=== PATIENT | male | born 1990 | race Caucasian/White ===

== ENCOUNTER 2020-01-28 20:30 | Outpatient (CLI) | payer BC | END 2020-01-28 20:31 | disposition home or self-care (01) | LOC: SLEEPLAB 20:30 | PROVIDERS: ATTEND Family Medicine | DX: G47.33 Obstructive sleep apnea (adult) (pediatric) (principal); R51 Headache; R53.83 Other fatigue; G47.00 Insomnia, unspecified; G47.12 Idiopathic hypersomnia without long sleep time | CPT/HCPCS: 95810 ==